=== PATIENT | male | born 1960 | race Caucasian/White ===

== ENCOUNTER 2025-06-27 08:35 | Outpatient (CLI) | payer OTHER | END 2025-06-27 08:37 | disposition home or self-care (01) | LOC: SONOGRAMA 08:35 | PROVIDERS: ATTEND Pathology Anatomic Pathology & Clinical Pathology | DX: D34 Benign neoplasm of thyroid gland (principal); E06.3 Autoimmune thyroiditis; R59.0 Localized enlarged lymph nodes; E04.2 Nontoxic multinodular goiter ==